=== PATIENT | female | born 1965 | race Two or more races ===

== ENCOUNTER 2020-01-11 00:25 | Observation (INO) | payer OTHER ==
--- OUTSIDE RECORDS SUMMARY | 2020-01-11 00:27 | XMS REPORT | Continuity of Care Document ---
:1965 Author Organization [facility] t Address [address] [place] [address] Care Team Providers Name Role Phone Unavailable Unavailable Unavailable Payers Payer Name Policy Type Policy Number Effective Date Expiration Date S ource Problems This patient has no known problems. Allergies, Adverse Reactions, Alerts Allergy Allergy Status Severity Reaction(s) Onset Inactive Treating Comm ents Source Name Type Date Date Clinician No Known DA Active U [facility] Allergie 11-10 s 00:00: [address] Medications This patient has no known medications. Procedures This patient has no known procedures. Results Test Description Test Time Test Comments Results Result [facility] e Comments - [facility] 2019-11-11 Patient Name: 10:07:00 SEAMUS MARRERO Unit No: [id number] EXAMS: CPT CODE: [id number] [facility] [address] Ultrasound of the gallbladder. History: RUQ pain Comparison: None at this time Location: R16 There are gallstones in the gallbladder. The gallbladder wall is normal in thickness. There is no pericholecystic fluid. The common duct measures 1.6 mm in diameter. No intrahepatic biliary ductal dilatation is identified. The echotexture of the liver is unremarkable. The right kidney measures 8.1 cm in length. There is no right hydronephrosis. The pancreas is not adequately demonstrated. Real-time grayscale 2-dimensional examination of the main portal vein, as well as Doppler spectral analysis and Doppler color flow imaging of the main portal vein was performed. There is hepatopedal blood flow in the main portal vein. IMPRESSION: Cholelithiasis. at 1007 Reported and signed by: Logan Lopez MD CC: Shorty Peters MD Technologist: Marlene Valadez (RDMS AB OB) Transcrpt Date/Tm/Trnsp: 11/11/2019 (1007) t.SDR.PMT Orig Print D/T: S: 11/11/2019 (1011) [facility] NAME: SEAMUS MARRERO [id number] PHYS: [id number] - [place] [address] : 1965 AGE: 54 SEX: F LOC: [place] PHONE #: [phone] EXAM DATE: 11/11/2019 STATUS: REG ER FAX #: [phone] RADIOLOGY NO: PAGE 1 Signed Report URINALYSIS COMPLETE 2019-11-11 09:38:00 Test Item Value Reference Range Interpretation Comme nts UA COLOR (test code = COLU) YELLOW YELLOW UA APPEARANCE (test code = APPU) CLEAR CLEAR UA GLUCOSE DIPSTICK (test code = DGLUU) NORMAL MG/DL NORMAL UA BILIRUBIN DIPSTICK (test code = NEGATIVE MG/DL NEGATIVE BILU) UA KETONE DIPSTICK (test code = KETU) NEGATIVE MG/DL NEGATIVE UA SPECIFIC GRAVITY (test code = SGU) 1.020 1.003-1.030 N UA BLOOD DIPSTICK (test code = LAUREN) NEGATIVE Karel/mm3 NEGATIVE UA PH DIPSTICK (test code = CHRISTIN) 5.0 5.0-9.0 N UA PROTEIN DIPSTICK (test code = PROU) NEGATIVE MG/DL NEGATIVE UA UROBILINIOGEN DIPSTICK (test code = NORMAL MG/DL NORMAL URO) UA NITRITE DIPSTICK (test code = RUIZ) NEGATIVE NEGATIVE UA LEUKOCYTE ESTERASE DIPSTICK (test NEGATIVE /mm3 NEGATIVE code = LEUU) UA CULTURE NEEDED? (test code = UACULT) NEGATIVE, NO CULTURE Criteria Culture Chk SOURCE OF URINE: CLEAN CATCHCOMPREHENSIVE METABOLIC [id number] 09:32:00 Test Item Value Reference Range Interpretation Comments SODIUM (test code = 139 MMOL/L 137-145 N NA) POTASSIUM (test code = 4.0 MMOL/L 3.5-5.1 N K) CHLORIDE (test code = 104 MMOL/L 98-107 N CL) CARBON DIOXIDE (test 28 MMOL/L 22-30 N code = CO2) GLUCOSE (test code = 110 MG/DL 74-106 H GLU) BLOOD UREA NITROGEN 16 MG/DL 7-17 N (test code = BUN) GLOMERULAR FILTRATION > 60 Report ing units: RATE (test code = GFR) ml/mi n/1.73 m2 (Modified MDRD Formula)Referen ce Range: > or = 6 0 ml/min/1.73 m2 CREATININE (test code 0.60 MG/DL 0.52-1.04 N = CREAT) TOTAL PROTEIN (test 8.7 G/DL 6.3-8.2 H code = PROT) ALBUMIN (test code = 4.6 G/DL 3.5-5.0 N ALB) CALCIUM (test code = 9.5 MG/DL 8.4-10.2 N CA) BILIRUBIN TOTAL (test 0.8 MG/DL 0.2-1.3 N code = BILT) SGOT/AST (test code = 40 UNITS/L 14-36 H AST) SGPT/ALT (test code = 58 UNITS/L <35 ALT) ALKALINE PHOSPHATASE 109 UNITS/L 38-126 N (test code = ALKP) [id number] 09:32:00 Test Item Value Reference Range Interpretation Comments LIPASE (test code = LIP) 62 UNITS/L 23-300 N COMPREHENSIVE METABOLIC [id number] 09:31:00 Test Item Value Reference Range Interpretation Comments SODIUM (test code = 139 MMOL/L 137-145 N NA) POTASSIUM (test code = 4.0 MMOL/L 3.5-5.1 N K) CHLORIDE (test code = 104 MMOL/L 98-107 N CL) CARBON DIOXIDE (test 28 MMOL/L 22-30 N code = CO2) GLUCOSE (test code = MG/DL 74-106 GLU) BLOOD UREA NITROGEN MG/DL 7-17 (test code = BUN) GLOMERULAR FILTRATION > 60 Report ing units: RATE (test code = GFR) ml/mi n/1.73 m2 (Modified MDRD Formula)Referen ce Range: > or = 6 0 ml/min/1.73 m2 CREATININE (test code 0.60 MG/DL 0.52-1.04 N = CREAT) TOTAL PROTEIN (test 8.7 G/DL 6.3-8.2 H code = PROT) ALBUMIN (test code = 4.6 G/DL 3.5-5.0 N ALB) CALCIUM (test code = MG/DL 8.7-9.7 CA) BILIRUBIN TOTAL (test 0.8 MG/DL 0.2-1.3 N code = BILT) SGOT/AST (test code = 40 UNITS/L 14-36 H AST) SGPT/ALT (test code = UNITS/L <35 ALT) ALKALINE PHOSPHATASE 109 UNITS/L 38-126 N (test code = ALKP) [id number] 09:31:00 Test Item Value Reference Range Interpretation Comments LIPASE (test code = LIP) UNITS/L 23-300 COMPREHENSIVE METABOLIC [id number] 09:29:00 Test Item Value Reference Range Interpretation Comments SODIUM (test code = NA) 139 MMOL/L 137-145 N POTASSIUM (test code = K) 4.0 MMOL/L 3.5-5.1 N CHLORIDE (test code = CL) 104 MMOL/L 98-107 N CARBON DIOXIDE (test code = CO2) MMOL/L 22-30 GLUCOSE (test code = GLU) MG/DL 74-106 BLOOD UREA NITROGEN (test code = MG/DL 7-17 BUN) GLOMERULAR FILTRATION RATE (test code = GFR) CREATININE (test code = CREAT) MG/DL 0.52-1.04 TOTAL PROTEIN (test code = PROT) G/DL 6.3-8.2 ALBUMIN (test code = ALB) 4.6 G/DL 3.5-5.0 N CALCIUM (test code = CA) MG/DL 8.7-9.7 BILIRUBIN TOTAL (test code = BILT) MG/DL 0.2-1.3 SGOT/AST (test code = AST) UNITS/L 15-37 SGPT/ALT (test code = ALT) UNITS/L <35 ALKALINE PHOSPHATASE (test code = UNITS/L 38-126 ALKP) [id number] 09:29:00 Test Item Value Reference Range Interpretation Comments LIPASE (test code = LIP) UNITS/L 23-300 COMPREHENSIVE METABOLIC [id number] 09:28:00 Test Item Value Reference Range Interpretation Comments SODIUM (test code = NA) MMOL/L 137-145 POTASSIUM (test code = K) MMOL/L 3.5-5.1 CHLORIDE (test code = CL) MMOL/L 98-107 CARBON DIOXIDE (test code = CO2) MMOL/L 22-30 GLUCOSE (test code = GLU) MG/DL 74-106 BLOOD UREA NITROGEN (test code = MG/DL 7-17 BUN) GLOMERULAR FILTRATION RATE (test code = GFR) CREATININE (test code = CREAT) MG/DL 0.52-1.04 TOTAL PROTEIN (test code = PROT) G/DL 6.3-8.2 ALBUMIN (test code = ALB) 4.6 G/DL 3.5-5.0 N CALCIUM (test code = CA) MG/DL 8.7-9.7 BILIRUBIN TOTAL (test code = BILT) MG/DL 0.2-1.3 SGOT/AST (test code = AST) UNITS/L 15-37 SGPT/ALT (test code = ALT) UNITS/L <35 ALKALINE PHOSPHATASE (test code = UNITS/L 38-126 ALKP) [id number] 09:28:00 Test Item Value Reference Range Interpretation Comments LIPASE (test code = LIP) UNITS/L 23-300 URINALYSIS [id number] 09:20:00 Test Item Value Reference Range Interpretation Comments UA COLOR (test code = COLU) YELLOW YELLOW UA APPEARANCE (test code = CLEAR CLEAR APPU) UA GLUCOSE DIPSTICK (test NORMAL MG/DL NORMAL code = DGLUU) UA BILIRUBIN DIPSTICK (test NEGATIVE MG/DL NEGATIVE code = BILU) UA KETONE DIPSTICK (test NEGATIVE MG/DL NEGATIVE code = KETU) UA SPECIFIC GRAVITY (test 1.020 1.003-1.030 N code = SGU) UA BLOOD DIPSTICK (test code NEGATIVE Kaerl/mm3 NEGATIVE = LAUREN) UA PH DIPSTICK (test code = 5.0 5.0-9.0 N CHRISTIN) UA PROTEIN DIPSTICK (test NEGATIVE MG/DL NEGATIVE code = PROU) UA UROBILINIOGEN DIPSTICK NORMAL MG/DL NORMAL (test code = URO) UA NITRITE DIPSTICK (test NEGATIVE NEGATIVE code = RUIZ) UA LEUKOCYTE ESTERASE NEGATIVE /mm3 NEGATIVE DIPSTICK (test code = LEUU) UA CULTURE NEEDED? (test Criteria Culture Chk code = UACULT) SOURCE OF URINE: CLEAN CATCHCBC W/AUTO [id number] 09:18:00 Test Item Value Reference Range Interpretation Comments WHITE BLOOD CELL (test code = 5.6 K/MM3 3.8-9.8 N WBC) RED BLOOD CELL (test code = 4.68 M/MM3 3.58-4.97 N RBC) HEMOGLOBIN (test code = HGB) 13.6 G/DL 11.2-14.9 N HEMATOCRIT (test code = HCT) 41.5 % 33.2-43.5 N MEAN CELL VOLUME (test code = 89 fL 80.7-99.1 N MCV) MEAN CELL HGB (test code = MCH) 29.1 pg 27.0-34.1 N MEAN CELL HGB CONCETRATION 32.8 % 32.2-35.7 N (test code = MCHC) RED CELL DISTRIBUTION WIDTH 12.8 % 12.1-15.2 N (test code = RDW) PLATELET COUNT (test code = 193 K/MM3 129-368 N PLT) MEAN PLATELET VOLUME (test code 10.2 fl 7.4-10.4 N = MPV) NEUTROPHIL % (test code = NT%) 48.6 % 43-75 N IMMATURE GRANULOCYTE % (test 0.2 % 0.0-2.0 N code = IG%) LYMPHOCYTE % (test code = LY%) 40.4 % 14-44 N MONOCYTE % (test code = MO%) 6.5 % 4-13 N EOSINOPHIL % (test code = EO%) 3.6 % 0-6 N BASOPHIL % (test code = BA%) 0.7 % 0-2 N NUCLEATED RBC % (test code = 0.0 % 0-1.0 N NRBC%) NEUTROPHIL # (test code = NT#) 2.71 K/mm3 2.0-7.6 N IMMATURE GRANULOCYTE # (test 0.01 x10 3/uL 0-0.03 N code = IG#) LYMPHOCYTE # (test code = LY#) 2.25 K/mm3 1.0-3.8 N MONOCYTE # (test code = MO#) 0.36 K/mm3 0.1-0.8 N EOSINOPHIL # (test code = EO#) 0.20 K/mm3 0.0-0.2 N BASOPHIL # (test code = BA#) 0.04 K/mm3 0.0-0.2 N NUCLEATED RBC # (test code = 0.00 K/mm3 0.0-0.1 N NRBC#)
[2020-01-11] MEDS ORDERED: MORPHINE 4 MG/ML SYR ONE (01:00)
[2020-01-11] MEDS ORDERED: FAMOTIDINE 20 MG/2 ML VIAL IV ONE (01:01)
[2020-01-11] MEDS ORDERED: NA CHLORIDE 0.9% 1,000 ML ONE ×2 (01:01→12:53)
[2020-01-11] MEDS ORDERED: ONDANSETRON 4 MG/2 ML VIAL ONE ×2 (01:01→11:01)
[2020-01-11 01:38] LABS: Absolute Lymphocytes (CBC) 2.3 K/uL (0.7-4.9); Basophils % 0.7 % (0-1.3); Hematocrit 35.4 % (36.0-45.0); Lymphocytes % 42.9 % (15.3-44.8); MPV 9.1 fL (7.6-11.3); RBC Red Blood Cell Count 4.08 M/uL (3.86-4.86)
[2020-01-11 01:49] LABS: ALT/SGPT 43 U/L (12-78); AST/SGOT 24 U/L (15-37); Albumin 3.4 g/dL (3.4-5.0); Alkaline Phosphatase 116 U/L (45-117); BUN Blood Urea Nitrogen 15 mg/dL (7-18); Bicarbonate 27 mmol/L (21-32); Bilirubin Direct < 0.1 mg/dL (0-0.2); Bilirubin Total 0.2 mg/dL (0.2-1.0); Glucose Level 104 mg/dL (74-106); Lipase 101 U/L (73-393); Potassium 3.8 mmol/L (3.5-5.1); Protein, Total 6.9 g/dL (6.4-8.2); Sodium Level 144 mmol/L (136-145)
--- NOTE | 2020-01-11 04:12 | ER ---
Nurse's Notes [facility] Name: Brandin Tripp Age: 54 yrs Sex: Female : 1965 Arrival Date: 01/11/2020 Time: 00:29 Bed 7 Private MD: Diagnosis: Acute Cholecystitis Presentation: 01/10 00:49 Chief complaint: Patient's son or daughter states: PER SON ABD PAIN AT 200 AFTER EATING mt2 PIZZA. STATES PRESSURE, NAUSEA BUT NO EMESIS. DENIES FEVER OR DIARRHEA OR SYMPTOMS. Coronavirus screen: At this time, the client does not indicate any symptoms associated with coronavirus-19. Ebola Screen: No symptoms or risks identified at this time. Initial Sepsis Screen: Does the patient meet any 2 criteria? No. Patient's initial sepsis screen is negative. Does the patient have a suspected source of infection? No. Patient's initial sepsis screen is negative. Risk Assessment: Do you want to hurt yourself or someone else? Patient reports no desire to harm self or others. Onset of symptoms was January 10, 2020 at 20:00. 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 - Social history:: Smoking status: Patient denies any tobacco usage or history of. Screenin:52 Abuse screen: Denies threats or abuse. Nutritional screening: No deficits noted. mt2 Tuberculosis screening: No symptoms or risk factors identified. Fall Risk None identified. Assessment: 00:52 Pain: Complains of pain in abdomen Pain currently is 10 out of 10 on a pain scale. mt2 Quality of pain is described as pressure. Neuro: No deficits noted. Cardiovascular: No deficits noted. Respiratory: No deficits noted. GI: Bowel sounds present X 4 quads. Abdomen is tender to palpation Reports upper abdominal pain, nausea. : No deficits noted. EENT: No deficits noted. Derm: No deficits noted. Musculoskeletal: No deficits noted. 01:30 Reassessment: Patient and/or family updated on plan of care and expected duration. Pain mt2 level reassessed. Patient is alert, oriented x 3, equal unlabored respirations, skin warm/dry/pink. Patient states symptoms have improved. General: Appears comfortable, Behavior is cooperative. 02:04 Reassessment: Patient and/or family updated on plan of care and expected duration. Pain mt2 level reassessed. Patient is alert, oriented x 3, equal unlabored respirations, skin warm/dry/pink. Patient states symptoms have improved. General: Appears comfortable, Behavior is cooperative. 03:02 Reassessment: Patient and/or family updated on plan of care and expected duration. Pain mt2 level reassessed. Patient is alert, oriented x 3, equal unlabored respirations, skin warm/dry/pink. Patient denies pain at this time. Patient states symptoms have improved. General: Appears comfortable, Behavior is cooperative. 04:00 Reassessment: Patient and/or family updated on plan of care and expected duration. Pain mt2 level reassessed. Patient is alert, oriented x 3, equal unlabored respirations, skin warm/dry/pink. Patient denies pain at this time. General: Appears comfortable, Behavior is cooperative. Pain: Denies pain. 05:00 Reassessment: Patient and/or family updated on plan of care and expected duration. Pain ea level reassessed. Patient is alert, oriented x 3, equal unlabored respirations, skin warm/dry/pink. Pt admitted to second floor, report called to receiving nurse. Pt left ED via stretcher accompanied by family. Pt tolerating well. Patient denies pain at this time. Patient states symptoms have improved. Vital Signs: 00:49 BP 156 / 91; Pulse 73; Resp 16; Temp 98.2; Pulse Ox 100% ; Weight 61.23 kg; Height 5 mt2 ft. 1 in. (154.94 cm); Pain 10/10; 01:29 BP 139 / 87; Pulse 83; Resp 16; Pulse Ox 99% on R/A; Pain 4/10; mt2 02:03 BP 113 / 78; Pulse 84; Resp 16; Pulse Ox 100% on R/A; Pain 0/10; mt2 03:02 BP 111 / 72; Pulse 66; Resp 16; Pulse Ox 99% ; Pain 0/10; mt2 04:00 BP 101 / 51; Pulse 65; Resp 16; Pulse Ox 99% on R/A; Pain 0/10; mt2 05:02 BP 133 / 88; Pulse 70; Resp 18; Pulse Ox 99% ; ea 00:49 Body Mass Index 25.51 (61.23 kg, 154.94 cm) mt2 ED Course: 00:29 Patient arrived in ED. es 00:33 Buzz Thompson MD is Attending Physician. 7 00:48 Gisell Ward, RN is Primary Nurse. mt2 00:50 Inserted saline lock: 20 gauge in left forearm, using aseptic technique. ds4 00:51 Triage completed. mt2 00:51 Arm band placed on right wrist. mt2 00:52 Placed in gown. Bed in low position. Call light in reach. Side rails up X 1. mt2 00:57 CBC with Diff Sent. ds4 00:58 Hepatic Function Sent. ds4 00:58 Basic Metabolic Panel Sent. ds4 00:58 Lipase Sent. ds4 00:58 Basic Metabolic Panel Sent. ds4 01:52 CT Abd/Pelvis - IV Contrast Only In Process Unspecified. EDRI 04:11 Kiesha Blancas MD is Hospitalizing Provider. [facility] 04:47 No provider procedures requiring assistance completed. Patient admitted, IV remains in ea place. Administered Medications: 00:59 Drug: NS 0.9% 1000 ml Route: IV; Rate: 1000 ml; Site: left forearm; mt2 02:03 Follow up: Response: No adverse reaction; IV Status: Completed infusion mt2 00:59 Drug: Pepcid 20 mg Route: IVP; Site: right forearm; mt2 02:03 Follow up: Response: No adverse reaction; Pain is decreased mt2 01:00 Drug: Zofran (Ondansetron) 4 mg Route: IVP; Site: left forearm; mt2 02:03 Follow up: Response: No adverse reaction; Pain is decreased mt2 01:01 Drug: morphine 4 mg Route: IVP; Site: left forearm; mt2 02:03 Follow up: Response: No adverse reaction; Pain is decreased mt2 04:30 Drug: Zosyn 3.375 grams Route: IVPB; Infused Over: 60 mins; Site: left forearm; mt2 05:03 Follow up: Response: No adverse reaction; IV Status: Infusion continued upon admission ea Outcome: 04:11 Decision to Hospitalize by Provider. [facility] 04:47 Instructed on the need for admit, Demonstrated understanding of instructions. sourav 05:01 Admitted to Med/surg accompanied by tech, room 232, with chart, Report called to sourav Receiving nurse on second floor. 05:01 Condition: stable 05:12 Patient left the ED. mt2 Signatures: Dispatcher [employer] EDLuz Marina Cochran Donovan ds4 Yasmin Almaguer, RN RN Buzz Paulino MD MD 7 Gisell Ward RN RN mt2
--- NOTE | 2020-01-11 04:12 | EDPHYS ---
Physician Documentation [facility] Name: Brandin Tripp Age: 54 yrs Sex: Female : 1965 Arrival Date: 01/11/2020 Time: 00:29 Bed 7 Private MD: ED Physician Buzz Thompson HPI: 01/10 00:48 This 54 yrs old Female presents to ER via Unassigned with complaints of Abdominal Pain. mh7 00:48 The patient presents with abdominal pain in the upper abdomen. Onset: The mh7 symptoms/episode began/occurred yesterday, at 20:30. The symptoms do not radiate. Associated signs and symptoms: Pertinent negatives: nausea, vomiting, and diarrhea, nausea and vomiting, anorexia, blood in stools, chest pain, constipation, diarrhea, dysuria, fever, headache, hematuria, nausea, palpitations, shortness of breath, vaginal discharge, vomiting, vomiting blood. The symptoms are described as intermittent, vague, waxing/waning. Modifying factors: The symptoms are alleviated by nothing, the symptoms are aggravated by food. Severity of pain: At its worst the pain was moderate today, in the emergency department the pain is unchanged. 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 - Social history:: Smoking status: Patient denies any tobacco usage or history of. ROS: 00:48 Constitutional: Negative for fever, chills, and weight loss, Eyes: Negative for injury, mh7 pain, redness, and discharge, ENT: Negative for injury, pain, and discharge, Neck: Negative for injury, pain, and swelling, Cardiovascular: Negative for chest pain, palpitations, and edema, Respiratory: Negative for shortness of breath, cough, wheezing, and pleuritic chest pain, Back: Negative for injury and pain, : Negative for injury, bleeding, discharge, and swelling, MS/Extremity: Negative for injury and deformity, Skin: Negative for injury, rash, and discoloration, Neuro: Negative for headache, weakness, numbness, tingling, and seizure, Psych: Negative for depression, anxiety, suicide ideation, homicidal ideation, and hallucinations, Allergy/Immunology: Negative for hives, rash, and allergies, Endocrine: Negative for neck swelling, polydipsia, polyuria, polyphagia, and marked weight changes, Hematologic/Lymphatic: Negative for swollen nodes, abnormal bleeding, and unusual bruising. Exam: 00:48 Head/Face: Normocephalic, atraumatic. Eyes: Pupils equal round and reactive to light, mh7 extra-ocular motions intact. Lids and lashes normal. Conjunctiva and sclera are non-icteric and not injected. Cornea within normal limits. Periorbital areas with no swelling, redness, or edema. Neck: Trachea midline, no thyromegaly or masses palpated, and no cervical lymphadenopathy. Supple, full range of motion without nuchal rigidity, or vertebral point tenderness. No Meningismus. Chest/axilla: Normal chest wall appearance and motion. Nontender with no deformity. No lesions are appreciated. Cardiovascular: Regular rate and rhythm with a normal S1 and S2. No gallops, murmurs, or rubs. Normal PMI, no JVD. No pulse deficits. Respiratory: Lungs have equal breath sounds bilaterally, clear to auscultation and percussion. No rales, rhonchi or wheezes noted. No increased work of breathing, no retractions or nasal flaring. 00:48 Back: No spinal tenderness. No costovertebral tenderness. Full range of motion. Skin: Warm, dry with normal turgor. Normal color with no rashes, no lesions, and no evidence of cellulitis. MS/ Extremity: Pulses equal, no cyanosis. Neurovascular intact. Full, normal range of motion. Neuro: Awake and alert, GCS 15, oriented to person, place, time, and situation. Cranial nerves II-XII grossly intact. Motor strength 5/5 in all extremities. Sensory grossly intact. Cerebellar exam normal. Normal gait. Psych: Awake, alert, with orientation to person, place and time. Behavior, mood, and affect are within normal limits. 00:48 Constitutional: The patient appears in no acute distress, alert, awake, uncomfortable. 00:48 Abdomen/GI: Inspection: abdomen appears normal, Bowel sounds: normal, in all quadrants, Palpation: moderate abdominal tenderness, in the epigastric area and right upper quadrant, Rectal exam: the exam is deferred, because of patient request, Indicators: McBurney's point is not tender, Shirley's sign is negative, Rovsing's sign is negative, Obturator sign is negative, Psoas sign is negative, Liver: no appreciated palpable abnormalities, Hernia: not appreciated. 01:14 ECG was reviewed by the Attending Physician. [facility] Vital Signs: 00:49 BP 156 / 91; Pulse 73; Resp 16; Temp 98.2; Pulse Ox 100% ; Weight 61.23 kg; Height 5 mt2 ft. 1 in. (154.94 cm); Pain 10/10; 01:29 BP 139 / 87; Pulse 83; Resp 16; Pulse Ox 99% on R/A; Pain 4/10; mt2 02:03 BP 113 / 78; Pulse 84; Resp 16; Pulse Ox 100% on R/A; Pain 0/10; mt2 03:02 BP 111 / 72; Pulse 66; Resp 16; Pulse Ox 99% ; Pain 0/10; mt2 04:00 BP 101 / 51; Pulse 65; Resp 16; Pulse Ox 99% on R/A; Pain 0/10; mt2 05:02 BP 133 / 88; Pulse 70; Resp 18; Pulse Ox 99% ; ea 00:49 Body Mass Index 25.51 (61.23 kg, 154.94 cm) in2 MDM: 00:[address] [facility] 04:09 Differential diagnosis: bowel obstruction, cholecystitis, Cholelithiasis, 7 diverticulitis, gastritis, gastroesophageal reflux disease, non-specific abd pain, pancreatitis, Peptic Ulcer Disease, Perf. Duodenal Ulcer, Perf. Gastric Ulcer, Pyelonephritis, Ureterolithiasis, urinary tract infection. Data reviewed: vital signs, nurses notes, lab test result(s), CBC, electrolytes, urinalysis, EKG, radiologic studies, CT scan. Data interpreted: Pulse oximetry: on room air is 99 %. Interpretation: normal. Counseling: I had a detailed discussion with the patient and/or guardian regarding: the historical points, exam findings, and any diagnostic results supporting the discharge/admit diagnosis, lab results, radiology results, the need for further work-up and treatment in the hospital. Response to treatment: the patient's symptoms have markedly improved after treatment. Physician consultation: Berto Banks MD regarding patient's condition, and will see patient in inpatient room, would like admission per Dr. Kiesha Blancas MD. 01/10 00:45 Order name: Basic Metabolic Panel [facility] 01/10 00:45 Order name: CBC with Diff; Complete Time: 01:43 [facility] 01/10 00:45 Order name: Hepatic Function; Complete Time: 03:07 [facility] 01/10 00:45 Order name: Lipase; Complete Time: 03:07 [facility] 01/10 00:45 Order name: Basic Metabolic Panel; Complete Time: 03:07 [facility] 01/10 03:50 Order name: Urine Dipstick--Ancillary (enter results) [facility] 01/10 03:50 Order name: Urine --Ancillary (enter results) [facility] 01/10 04:14 Order name: COVID-19 [facility] 01/10 04:32 Order name: Urinalysis [facility] 01/10 04:32 Order name: Basic Metabolic Panel [facility] 01/10 04:32 Order name: Basic Metabolic Panel [facility] 01/10 04:32 Order name: CBC with Automated Diff [facility] 01/10 04:32 Order name: CBC with Automated Diff [facility] 01/10 04:32 Order name: Magnesium [facility] 01/10 00:45 Order name: IV Saline Lock; Complete Time: 00:57 [facility] 01/10 00:45 Order name: Labs collected and sent; Complete Time: 00:57 [facility] 01/10 00:45 Order name: Urine Dipstick-Ancillary (obtain specimen); Complete Time: 04:47 [facility] 01/10 00:45 Order name: EKG - Nurse/Tech; Complete Time: 01:10 [facility] 01/10 00:46 Order name: CT Abd/Pelvis - IV Contrast Only [facility] 01/10 04:29 Order name: CONS Physician Consult [facility] 01/10 04:32 Order name: NPO [facility] 01/10 04:32 Order name: Magnesium [facility] 01/10 04:52 Order name: CREATININE WHOLE BLOOD EDRI EC:14 Rate is 79 beats/min. Rhythm is regular, Normal Sinus Rhythm. QRS [place] is Normal. [place] mh7 interval is normal. QRS interval is normal. QT interval is normal. No Q waves. T waves are Normal. No ST changes noted. Clinical impression: Normal ECG. Administered Medications: 00:59 Drug: NS 0.9% 1000 ml Route: IV; Rate: 1000 ml; Site: left forearm; mt2 02:03 Follow up: Response: No adverse reaction; IV Status: Completed infusion mt2 00:59 Drug: Pepcid 20 mg Route: IVP; Site: right forearm; mt2 02:03 Follow up: Response: No adverse reaction; Pain is decreased mt2 01:00 Drug: Zofran (Ondansetron) 4 mg Route: IVP; Site: left forearm; mt2 02:03 Follow up: Response: No adverse reaction; Pain is decreased mt2 01:01 Drug: morphine 4 mg Route: IVP; Site: left forearm; mt2 02:03 Follow up: Response: No adverse reaction; Pain is decreased mt2 04:30 Drug: Zosyn 3.375 grams Route: IVPB; Infused Over: 60 mins; Site: left forearm; mt2 05:03 Follow up: Response: No adverse reaction; IV Status: Infusion continued upon admission ea Disposition: 06:49 Co-signature as Attending Physician, Buzz Thompson MD. [facility] Disposition: 01/11/20 04:11 Hospitalization ordered by Kiesha Blancas for Inpatient Admission. Preliminary diagnosis is Acute Cholecystitis. - Bed requested for Telemetry/MedSurg (Inpatient). - Status is Inpatient Admission. mt2 - Condition is Stable. - Problem is new. - Symptoms have improved. Signatures: Dispatcher [employer] EDMS Tressa Shelton RN RN tl1 Buzz Thompson MD MD [facility] Gisell Ward RN RN in2 Yasmin Almaguer RN, ea Corrections: (The following items were deleted from the chart) 04:47 04:11 Hospitalization Ordered by Kiesha Blancas MD for Inpatient Admission. Preliminary tl1 diagnosis is Acute Cholecystitis. Bed requested for Telemetry/MedSurg (Inpatient). Status is Inpatient Admission. Condition is Stable. Problem is new. Symptoms have improved. [facility] 05:12 04:47 01/11/2020 04:11 Hospitalization Ordered by Kiesha Blancas MD for Inpatient mt2 Admission. Preliminary diagnosis is Acute Cholecystitis. Bed requested for Telemetry/MedSurg (Inpatient). Status is Inpatient Admission. Condition is Stable. Problem is new. Symptoms have improved. tl1
[2020-01-11] MEDS ORDERED: PIPER/TAZO/NS 3.375gm 3.375 GM/100 ML BAG ONE (04:26)
[2020-01-11] MEDS ORDERED: ONDANSETRON 4 MG/2 ML VIAL IV PRN (04:29)
[2020-01-11] MEDS ORDERED: MORPHINE 2 MG/ML SYR IV PRN (04:32)
--- NOTE | 2020-01-11 04:38 | P.HP ---
Certification for Inpatient Patient admitted to: Observation With expected LOS: <2 Midnights Patient will require the following post-hospital care: None Practitioner: I am a practitioner with admitting privileges, knowledge of patient current condition, hospital course, and medical plan of care. Services: Services provided to patient in accordance with Admission requirements found in Title 42 Section 412.3 of the Code of Federal Regulations <Sergio Rodriguez - Last Filed: 01/11/20 04:33> Patient History Date of Service: 01/11/20 Reason for admission: Acute cholecystitis History of Present Illness: 54-year-old female with no significant past medical history presents to the emergency room brought by her with complaints of abdominal pain. States the abdominal pain occurred yesterday night at around 8:30 p.m. and is located in the right upper quadrant. Patient states that the pain started after eating pizza. The pain has not improved and states that she has had nausea with no vomiting. In the emergency room patient's pain has improved after IV morphine. She is alert and oriented x3. Does not speak French and her is with her translating. She is in no distress. Vitals are stable. Preliminary report from CT abdomen pelvis shows acute cholecystitis. Surgery was consulted- and patient will be evaluated by surgery in the morning. Patient will be placed in observation and further evaluated. Will start patient on IV Zosyn per surgery recommendations. Home medications list reviewed: No - Past Medical/Surgical History Diabetic: No -: none -: none Psychosocial/ Personal History: . Lives at home with . - Social History Smoking Status: Never smoker Alcohol use: No CD- Drugs: No Caffeine use: No Place of Residence: Home <GregorioloiSergio stone - Last Filed: 01/11/20 04:33> Date of Service: 01/11/20 <Gus Green - Last Filed: 01/11/20 20:14> Review of Systems General: As per HPI Eyes: Unremarkable ENT: Unremarkable Respiratory: Unremarkable Cardiovascular: Unremarkable Gastrointestinal: Nausea, Abdominal Pain (Right upper quadrant), As per HPI Genitourinary: Unremarkable Musculoskeletal: Unremarkable Integumentary: Unremarkable Neurological: Unremarkable Lymphatics: Unremarkable <LalajameSergio stone - Last Filed: 01/11/20 04:33> Physical Examination - Vital Signs Temperature: 98.2 F Blood Pressure: 111/72 Pulse: 73 Respirations: 16 Pulse Ox (%): 100 (RA) - Physical Exam General: Alert, In no apparent distress, Oriented x3 HEENT: Atraumatic, Normocephalic, PERRLA Neck: Supple, Other (Trachea midline) Respiratory: Clear to auscultation bilaterally, Normal air movement Cardiovascular: No edema, Normal pulses, Regular rate/rhythm, Normal S1 S2 Capillary refill: <2 Seconds Gastrointestinal: Normal bowel sounds, Soft and benign, Non-distended, Tenderness (Mild right upper quadrant pain with palpation) Musculoskeletal: No clubbing, No swelling, No contractures, No erythema Integumentary: No rashes, No breakdown, No significant lesion, No tenderness/swelling Neurological: Normal gait, Normal speech, Normal strength at 5/5 x4 extr, Normal tone - Studies Laboratory Data (last 24 hrs) 01/11/20 01:24: WBC 5.5, Hgb 12.0, Hct 35.4 L, Plt Count 173 01/11/20 01:24: Sodium 144, Potassium 3.8, BUN 15, Creatinine 0.68, Glucose 104, Total Bilirubin 0.2, AST 24, ALT 43, Alkaline Phosphatase 116, Lipase 101 <Sergio Rodriguez - Last Filed: 01/11/20 04:33> - Studies Laboratory Data (last 24 hrs) 01/11/20 01:24: WBC 5.5, Hgb 12.0, Hct 35.4 L, Plt Count 173 01/11/20 01:24: Sodium 144, Potassium 3.8, BUN 15, Creatinine 0.68, Glucose 104, Total Bilirubin 0.2, AST 24, ALT 43, Alkaline Phosphatase 116, Lipase 101 <Gus Green - Last Filed: 01/11/20 20:14> Assessment and Plan - Plan Impression: Acute cholecystitis: Plan: Acute cholecystitis: Preliminary report with CT abdomen pelvis shows acute cholecystitis. Surgery on board-. Will start patient on IV Zosyn. Patient to be evaluated for possible surgical intervention in the morning. Continue IV fluids and pain control with IV morphine 2 mg q.4 hr p.r.n. monitor vital signs and daily labs. Will keep NPO except for ice chips. Discharge Plan: Home Plan to discharge in: 48 Hours - Advance Directives Does patient have a Living Will: No Does patient have a Durable POA for Healthcare: No - Code Status/Comfort Care Code Status Assessed: Yes Time Spent Managing Pts Care (In Minutes): 55 <Sergio Rodriguez - Last Filed: 01/11/20 04:33> Physician Review Additional Text: I have discussed the plan of care for this patient with Sergio Rodriguez, and I agree with the management as noted above. Afternoon Addendum: Patient was taken to the OR by Dr. Banks where she underwent lap cholecystectomy. She was found to have acute calculous cholecystitis. Postoperatively, patient did well and she was discharged after dinner. She tolerated full liquid diet and had adequate pain control. She was discharged with pain medication and instructed to f/u with Dr. Banks. <Gus Green - Last Filed: 01/11/20 20:14>
[2020-01-11] MEDS ORDERED: NA CHLORIDE 0.9% 1,000 ML IV SCH (05:00)
[2020-01-11 05:39] VITALS: BMI 26.0
[2020-01-11 06:02] LABS: Urine Blood TRACE (NEG); Urine Glucose NEGATIVE (NEG); Urine Protein NEGATIVE (NEG); Urine pH 5.5 (5.0-7.0)
[2020-01-11] MEDS ORDERED: ENOXAPARIN 40 MG/0.4 ML SQ SCH (09:00)
[2020-01-11] MEDS ORDERED: PIPER/TAZO/NS 3.375gm 3.375 GM/100 ML BAG IVPB SCH (10:00)
[2020-01-11] MEDS: PIPER/TAZO/NS 3.375gm 3.375 GM/100 ML BAG IVPB SCH ×2 (10:25→16:08)
[2020-01-11] MEDS ORDERED: BUPIVACA 0.25%/EPI 0.0005%/PF 30 ML VIAL ONE (10:58)
[2020-01-11] MEDS ORDERED: FENTANYL CITR 100 MCG/2 ML ONE (11:01)
[2020-01-11] MEDS ORDERED: propofoL 200 MG/20 ML VIAL IV ONE (11:01)
[2020-01-11] MEDS ORDERED: MIDAZOLAM HCL 2 MG/2 ML INJ ONE (11:01)
[2020-01-11] MEDS ORDERED: GLYCOPYRROLATE 0.2 MG/ML SYR ONE (11:01)
[2020-01-11] MEDS ORDERED: NEOSTIGMINE 1 MG/ML -5 ML ONE (11:02)
[2020-01-11] MEDS ORDERED: dexAMETHasone 4 MG/ML VIAL ONE (11:02)
[2020-01-11] MEDS ORDERED: LIDOCAINE 1% MPF 5 ML VIAL ONE (11:02)
[2020-01-11] MEDS ORDERED: MORPHINE 10 MG/ML VIAL ONE (11:02)
[2020-01-11] MEDS ORDERED: KETOROLAC 30 MG/ML INJ ONE (11:02)
--- NOTE | 2020-01-11 11:10 | CON ---
Date of Consultation: 01/11/2020 Brief History Of Present Illness: The patient is a 54-year-old [place] female with no significant past medical history, who presents to the emergency room with complaints of abdominal pain in the ep igastric and right upper quadrant beginning earlier in the day. She states she has had multiple epis odes like this in the past over the past year or longer with the last episode a few months ago. It i s typically brought upon by greasy food and greasy meal, that typically resolves with clear liquid di et for a few days and ultimately the pain will subside. She was told she has had gallbladder issues in the past, but did not have surgery at that point. As such, she presents with a recurrence of her symptoms. She had some low-grade nausea. No vomiting. No other constitutional complaints. No sick contacts. No recent travel. No new food exposures. Past Medical History: Negative. Past Surgical History: Laparoscopic appendectomy. Social History: She denies smoking, alcohol, or recreational drug use. Review of Systems: Ten-point review of systems other than HPI, denies. Physical Examination: Vital Signs: At the time of examination her BMI is 26.1. Her blood pressure 116/62, pulse 64, respi ratory rate 16, temperature 97.1, and O2 sats 99% on room air. General: She is awake, alert, oriented. Psychiatric: She is appropriate conversive. HEENT: Normocephalic. Sclerae anicteric. Mucous members are moist. Pharynx clear. Neck: Supple. No JVD. Chest: Normal to expansion and excursion. Cardiovascular: Regular rate and rhythm. Pulmonary: Clear to auscultation bilaterally. Abdomen: Soft with positive right upper quadrant mild tenderness to palpation. Negative Shirley. No rebound. No guarding. No focal peritonitis. There is mild epigastric abdominal pain. Skin: Warm and dry. Laboratory Data: Reveals a white blood count 5.5, hemoglobin 12.0, hematocrit of 35.4, platelet coun t is 173, neutrophils 45%. Her sodium 144, potassium 2.9, chloride 112, carbon dioxide is 27, BUN 15 , creatinine 0.6, glucose is 104, total bilirubin 0.2, direct component 0.1, AST 24, ALT 43, alkaline phosphatase 116, lipase 101. UA is essentially negative with the exception of trace blood. She had imaging performed, which included a CT scan of the abdomen and pelvis officially read as findings oneal spicious for early acute cholecystitis, gallbladder wall appears minimally thickened and subtle, and infiltrative changes within the pericholecystic fat. Assessment And Plan: This is a 54-year-old female, who comes in with signs and symptoms of acute nik culous cholecystitis. 1.IV fluid hydration. 2.Antibiotic coverage with Zosyn 3.375 IV q.6h. 3.I have explained the risks, benefits, alternatives of laparoscopic possible open cholecystectomy i ncluding but not limited to bleeding, infection, damage to surrounding tissues, injury to bile ducts, intestines, need for further operation and procedure. The patient agrees to proceed as indicated. VISHAL/SASCHA Voice ID: [id number] Report ID: [id number]
--- NOTE | 2020-01-11 11:16 | RAD REPORT ---
EXAM DESCRIPTION: CT - Abdomen Pelvis W Contrast - 01/11/2020 6:55 am CLINICAL HISTORY: Abdominal pain, nausea TECHNIQUE: Contiguous axial images obtained through the abdomen and pelvis following the uneventful administration of IV contrast. Coronal and sagittal reformatted images were provided. This exam was performed according to our departmental dose-optimization program, which includes autom ated exposure control, adjustment of the mA and/or kV according to patient size and/or use of iterati ve reconstruction technique. COMPARISON: None available for comparison. FINDINGS: Lung bases: Clear Liver: Unremarkable Gallbladder and biliary system: Gallstones. The gallbladder wall appears minimally thickened. Subtle infiltrative changes within the pericholecystic fat. Pancreas: Unremarkable Spleen: Unremarkable Adrenals: Unremarkable Kidneys: Normal renal cortical enhancement. No calculi. No hydronephrosis. Bowel: Moderate stool. No obstruction. No appreciable mucosal thickening. Appendix: Pericecal suture material suggestive of prior appendectomy. No findings to suggest acute ap pendicitis. Urinary bladder: Unremarkable Reproductive: There has been a hysterectomy. No adnexal cysts or masses are identified. Lymph nodes: No pathologically enlarged lymph nodes. Peritoneum: No focal fluid collection. No free air. Vessels: No abdominal aortic aneurysm. Abdominal wall: Tiny fat-containing umbilical hernia. Bones: Unremarkable IMPRESSION: 1. Findings suspicious for early acute cholecystitis. 2. Other findings as above. Electronically signed by: Jose Miguel Lizama MD 01/11/2020 2:10 AM CDT Due to temporary technical issues with the PACS/Fluency reporting system, reports are being signed by the in house radiologist without review as a courtesy to ensure prompt reporting. The interpreting r adiologist is fully responsible for the content of the report.
--- NOTE | 2020-01-11 12:01 | P.OP ---
Fixed Capital Clerk: NONE,NONE Preoperative diagnosis: Acute Calculous Cholecystitis Postoperative diagnosis: Acute Calculous Cholecystitis Primary procedure: Laparoscopic Cholecystectomy Anesthesia: GETA + Local Estimated blood loss: <10cc Specimen: Gallbladder Findings: inflammation, gallstones Complications: None Transferred to: Recovery Room Condition: Good
[2020-01-11] MEDS ORDERED: HYDROCODONE/APAP 5/325 MG TAB PO PRN (12:24)
[2020-01-11 12:52] VITALS: O2SAT 95
[2020-01-11] MEDS ORDERED: PROMETHAZINE INJ 25 MG/ML AMP ONE (12:53)
[2020-01-11] MEDS ORDERED: HYDROMORPHONE HCL 1 MG/ML INJ ONE (12:53)
[2020-01-11 16:19] VITALS: BP 120/76; TEMP 97.6
--- NOTE | 2020-01-11 22:10 | OP ---
Date of Procedure: 01/11/2020 Surgeon: Berto Banks MD, Preoperative Diagnosis: Acute calculus cholecystitis. Postoperative Diagnosis: Acute calculus cholecystitis. Procedure Performed: Laparoscopic cholecystectomy. Anesthesia: General endotracheal plus local with 0.25% Marcaine with epinephrine. Estimated Blood Loss: Less than 10 mL. Specimen: Gallbladder. Findings: 1.Inflammatory changes to the triangle of calot and gallbladder. 2.Gallbladder had a significant stone burden. Complications: None. Transferred to recovery room in good condition. Procedure In Detail: After informed consent was obtained, the patient was brought to the operating r oom, prepped and draped in the usual sterile fashion. After adequate anesthesia was achieved, suprau mbilical area was anesthetized with 0.25% Marcaine, sharply incised. A 5 mm 0-degree optical trocar was introduced in the abdomen without evidence of complication. Insufflation was obtained to 15 mmHg at this time. There was no injury to vital structures upon entering the abdomen. Additional trocar chosen in the epigastrium. This was similarly anesthetized and sharply incised. A 5 mm trocar was introduced in the abdomen without evidence of complication. The umbilical trocar was then up-sized t o a 12 mm under direct visualization without evidence of complication. Additional trocar was placed in the right upper quadrant. This was similarly anesthetized and sharply incised. A 5 mm trocar was introduced in the abdomen without evidence of complication. The patient was positioned head up righ t-side up position. Ratcheted grasper was used to grasp the patient's gallbladder, the patient's rig ht shoulder dissection continued down to take inflammatory tissue and inflammatory rind off the anter ior surface of the gallbladder to expose 2 structures identified as the cystic duct and cystic artery . These were encircled and skeletonized ensuring the critical view of safety was obtained at this po int. After this was performed, I placed double titanium clips on the proximal side and singly on the distal side of both cystic duct and cystic artery. After this was performed, these 2 structures wer e ligated without evidence of complication. There was no leakage of bile or blood at the end of the procedure. The gallbladder was removed from the hepatic fossa without evidence of complication, plac ed in EndoCatch bag and removed through umbilical trocar. Reinsufflation then was obtained. The are a was copiously irrigated multiple times to complete clear. Minimal hemostatic measures were require d on the hepatic bed near the midportion of the hepatic fossa with good hemostasis. The area was copper plater iously irrigated once again, suction out to completely dry. The gallbladder sent off for pathologic examination and the patient was then positioned in neutral position. All irrigant was suctioned out once again and was found to be quite clear. At this point the umbilical trocar was removed and the u mbilical trocar site was closed using a Oscar-Sanjay suture passer with 0 Vicryl in an interrupted fashion with good approximation of tissues. The abdomen was completely desufflated under direct vis ualization without evidence of complication. All skin incisions were copiously irrigated and cleanse d and closed with a 4-0 Monocryl in a running fashion. Dermabond was placed over top. The patient t olerated the procedure well without evidence of complication, transferred in good condition. All cou nts were correct at the end of the case. VISHAL/SASCHA Voice ID: [id number] Report ID: [id number]
== END 2020-01-11 19:30 | disposition home or self-care (01) ==
LOC: ER 00:25 → ERHOLD 04:28 → 2ND 04:51
PROVIDERS: ADMIT Hospitalist; ATTEND Hospitalist
PROC: 0FT44ZZ Resection of Gallbladder, Percutaneous Endoscopic Approach (ICD-10-PCS; principal; 2020-01-11 11:30)
DX: K80.10 Calculus of gallbladder with chronic cholecystitis without obstruction (principal); Z20.828 Contact with and (suspected) exposure to other viral communicable diseases; K42.9 Umbilical hernia without obstruction or gangrene
CPT/HCPCS: 93005; 85025; 80048; 36415; 81025; 82565; 80076; 88304; 81003; 83690; 74177; 99285; 47562; U0003; Q9967; J2704; J2550; J2250; J3010; J2543 ×3; J1170; J2710; G0378 ×3; J7030 ×3; J2405 ×2